=== PATIENT | female | born 1935 | race Two or more races ===

== ENCOUNTER → 2022-06-20 | Outpatient (CLI) | payer MEDICARE ==
[~2022-06-20] MED LIST: **SFHN** SODIUM BICARBONATE 8.4% 10MEQ 10ML VIAL ONE; AMLO25TA PO; CALC-190 PO; CYMB60CA4 PO; ECOT81TA5 PO; KP V1TAB2 PO; LIDOCAINE 1% MDV 20ML VIAL ONE; LISI40TA4 PO; OMEP40CA4 PO; RA G1TAB11 PO; VITA100065 PO; VITMTA PO; ZINC50TA4 PO
[2022-06-20 12:27] VITALS: BP 132/64
== END ==
LOC: M WHCPRO 11:20
PROVIDERS: ATTEND Surgery
DX: C50.411 Malignant neoplasm of upper-outer quadrant of right female breast (principal); R92.8 Other abnormal and inconclusive findings on diagnostic imaging of breast

== ENCOUNTER → 2022-06-28 | Outpatient (CLI) | payer MEDICARE ==
[~2022-06-28] MED LIST changes: -**SFHN** SODIUM BICARBONATE 8.4% 10MEQ 10ML VIAL ONE; -LIDOCAINE 1% MDV 20ML VIAL ONE
[2022-06-28 16:03] VITALS: BP 126/80
== END ==
LOC: M WHCPRO 14:38
PROVIDERS: ATTEND Surgery
DX: C50.411 Malignant neoplasm of upper-outer quadrant of right female breast (principal)
CPT/HCPCS: 19083; 77065; 88305; G0279

== ENCOUNTER → 2022-07-03 | Outpatient (CLI) | payer MEDICARE | LOC: M PLALAB 11:59 | PROVIDERS: ATTEND Surgery | DX: C50.911 Malignant neoplasm of unspecified site of right female breast (principal); Z80.1 Family history of malignant neoplasm of trachea, bronchus and lung; Z80.42 Family history of malignant neoplasm of prostate ==

== ENCOUNTER 2022-07-11 06:11 | Observation (INO) | payer MEDICARE ==
[~2022-07-11] VITALS: Ht 149.9 cm; Wt 63.5 kg
[2022-07-11] VITALS (7 sets, daily range): BP systolic 97–139; BP diastolic 49–71
[~2022-07-11 06:11] MED LIST changes: +ceFAZolin SOD 2 GM in IV 1 EA IV ONE
[2022-07-11] MEDS ORDERED: LR 1,000 ML IV SCH ×2 (06:35→13:00)
[2022-07-11] MEDS ORDERED: fentaNYL 100 MCG/2 ML INJECTION As Ordered ONE (07:17)
[2022-07-11] MEDS ORDERED: ROCURONIUM BROMIDE 50MG/5ML VIAL As Ordered ONE (07:17)
[2022-07-11] MEDS ORDERED: propofoL 200 MG/20 ML VIAL As Ordered ONE (07:17)
[2022-07-11] MEDS ORDERED: LIDOCAINE 2% 100MG/5ML SDV (FOR ANES.) As Ordered ONE (07:17)
[2022-07-11] MEDS ORDERED: ONDANSETRON 4MG 2ML VIAL As Ordered ONE (07:18)
[2022-07-11] MEDS ORDERED: SCOPOLAMINE 1MG TRANSDERMAL PATCH TOP ONE (07:30)
[2022-07-11] MEDS ORDERED: ASCO500T PO (07:36)
[2022-07-11] MEDS ORDERED: CALC500T25 PO (07:36)
[2022-07-11] MEDS ORDERED: GLUCTAB7 PO (07:36)
[2022-07-11] MEDS ORDERED: AMLO1TAB24 PO (07:36)
[2022-07-11] MEDS ORDERED: DULO30CA47 PO (07:36)
[2022-07-11] MEDS ORDERED: BUPIVACAINE LIPOSOME/PF 1.3% 20ML VIAL (13.3MG/ML)(EXPAREL) As Ordered ONE (07:37)
[2022-07-11] MEDS ORDERED: BUPIVACAINE HCL 0.25% 30ML VIAL As Ordered ONE (07:37)
[2022-07-11] MEDS ORDERED: HOME MED LIST COMPLETE! XX SCH (07:40)
[2022-07-11] MEDS ORDERED: HEPARIN SOD (PORCINE) 5000UNITS/ML 1ML VIAL/SYRINGE SQ ONE (09:30)
[2022-07-11] MEDS ORDERED: VASOPRESSIN INJ 20UNITS/ML 1ML VIAL As Ordered ONE (10:25)
[2022-07-11] MEDS ORDERED: ePHEDrine SULFATE 25 MG/5 ML(5MG/ML) SYRINGE As Ordered ONE ×2 (10:27→12:32)
[2022-07-11] MEDS ORDERED: PHENYLephrine 500MCG 5ML (100MCG/ML) SYRINGE As Ordered ONE ×2 (10:27→12:36)
[2022-07-11] MEDS ORDERED: ACETAMINOPHEN 1000MG 100ML IV BAG As Ordered ONE (10:29)
[2022-07-11] MEDS ORDERED: METOCLOPRAMIDE INJ 10MG/2ML VIAL As Ordered ONE (10:29)
[2022-07-11] MEDS ORDERED: SUGAMMADEX SODIUM 500 MG/5 ML VIAL (BRIDION) As Ordered ONE (10:32)
[2022-07-11] MEDS ORDERED: GLYCOPYRROLATE INJ 0.2 MG/ML 2 ML VIAL As Ordered ONE (11:45)
[2022-07-11] MEDS ORDERED: MEPERIDINE 25 MG/ML 1ML VIAL IV PRN (13:00)
[2022-07-11] MEDS ORDERED: ONDANSETRON 4MG 2ML VIAL IV PRN ×2 (13:00→13:20)
[2022-07-11] MEDS ORDERED: fentaNYL 100 MCG/2 ML INJECTION IV PRN (13:00)
[2022-07-11] MEDS ORDERED: MORPHINE 2 MG/ML 1ML VIAL IV PRN (13:20)
[2022-07-11] MEDS: LR 1,000 ML IV SCH (13:20)
[2022-07-11] MEDS ORDERED: oxyCODONE 5MG TAB PO PRN (13:20)
[2022-07-11] MEDS ORDERED: ACETAMINOPHEN TAB 650MG DOSE (2X325MG) PO PRN (13:20)
[2022-07-11 14:18] LABS: HEMATOCRIT 27.3 % (36.0-47.0); HEMOGLOBIN 8.9 g/dl (12.0-15.5); MEAN CORPUSCULAR HEMOGLOBIN 31.2 pg (27.0-33.0); MEAN CORPUSCULAR HGB CONC 32.6 g/dl (32.0-36.5); MEAN CORPUSCULAR VOLUME 95.8 fl (80.0-96.0); PLATELET COUNT, AUTOMATED 159 10^3/uL (150-450); RED BLOOD COUNT 2.85 10^6/uL (4.00-5.40); WHITE BLOOD COUNT 8.2 10^3/uL (4.0-10.0)
[2022-07-11 14:48] LABS: BLOOD UREA NITROGEN 18 MG/DL (9-23); CALCIUM LEVEL 8.1 MG/DL (8.3-10.6); CARBON DIOXIDE LEVEL 27 MMOL/L (20-31); CHLORIDE LEVEL 107 MMOL/L (98-107); CREATININE FOR GFR 0.89 MG/DL (0.55-1.30); GLOMERULAR FILTRATION RATE > 60.0 (>32); GLUCOSE, FASTING 167 MG/DL (74-106); POTASSIUM SERUM 4.1 MMOL/L (3.5-5.1); SODIUM LEVEL 138 MMOL/L (136-145)
[2022-07-11 14:50] LABS: THYROID STIMULATING HORMONE 9.788 uIU/ML (0.55-4.78)
[2022-07-11] MEDS: ceFAZolin SOD 2 GM in IV 1 EA IV SCH (18:33)
[2022-07-11] MEDS: amLODIPine 5 MG TAB PO SCH (20:57)
[2022-07-11] MEDS: lisinopriL 40MG TAB PO SCH (20:57)
[2022-07-11] MEDS: DULoxetine 30MG CAPSULE (CYMBALTA) PO SCH (21:02)
[2022-07-11] MEDS: HEPARIN SOD (PORCINE) 5000UNITS/ML 1ML VIAL/SYRINGE SQ SCH (21:02)
[2022-07-12] VITALS (13 sets, daily range): BP systolic 99–141; BP diastolic 38–86
[2022-07-12] MEDS: LR 1,000 ML IV SCH (02:11)
[2022-07-12 02:16] LABS: BASO % 0.1 % (0.0-1.0); HEMATOCRIT 23.1 % (36.0-47.0); HEMOGLOBIN 7.6 g/dl (12.0-15.5); LYMPH # 0.8 10^3/uL (1.5-5.0); LYMPH % 7.2 % (24.0-44.0); MEAN CORPUSCULAR HEMOGLOBIN 31.8 pg (27.0-33.0); MEAN CORPUSCULAR HGB CONC 32.9 g/dl (32.0-36.5); MEAN CORPUSCULAR VOLUME 96.7 fl (80.0-96.0); MONO # 0.6 10^3/uL (0.0-0.8); MONO % 5.3 % (2.0-8.0); NEUTROPHILS # 9.4 10^3/uL (1.5-8.5); NEUTROPHILS % 86.9 % (36.0-66.0); PLATELET COUNT, AUTOMATED 207 10^3/uL (150-450); RED BLOOD COUNT 2.39 10^6/uL (4.00-5.40); WHITE BLOOD COUNT 10.8 10^3/uL (4.0-10.0)
[2022-07-12 02:39] LABS: CALCIUM LEVEL 8.5 MG/DL (8.3-10.6); CREATININE FOR GFR 0.96 MG/DL (0.55-1.30); GLOMERULAR FILTRATION RATE 58.8 (>32); MAGNESIUM LEVEL 1.6 MG/DL (1.8-2.4); POTASSIUM SERUM 4.6 MMOL/L (3.5-5.1)
[2022-07-12] MEDS ORDERED: MAG SULF 1GM/100ML (MAG RUN) 1 GM in IV 1 EA IV ONE ×2 (02:45→07:40)
[2022-07-12] MEDS: ceFAZolin SOD 2 GM in IV 1 EA IV SCH ×2 (02:58→13:46)
[2022-07-12 03:06] LABS: IRON (FE) 60 UG/DL (50-170); TOTAL IRON BINDING CAPACITY 231 UG/DL (250-425)
[2022-07-12 03:08] LABS: FERRITIN 38.2 NG/ML (7.3-270.7); FOLATE > 24.00 NG/ML (>5.4)
[2022-07-12 03:09] LABS: VITAMIN B12 LEVEL 291 PG/ML (211-911)
[2022-07-12] MEDS: HEPARIN SOD (PORCINE) 5000UNITS/ML 1ML VIAL/SYRINGE SQ SCH (05:20)
[2022-07-12] MEDS ORDERED: NS 1,000 ML IV SCH (08:20)
[2022-07-12] MEDS: ASCORBIC ACID 500 MG TAB PO SCH (08:49)
[2022-07-12] MEDS: MULTIVITAMINS/MINERALS THERAP 1 TAB PO SCH (08:49)
[2022-07-12] MEDS: amLODIPine 5 MG TAB PO SCH ×3 (08:52→19:49)
[2022-07-12] MEDS: DULoxetine 30MG CAPSULE (CYMBALTA) PO SCH ×2 (08:52→20:16)
[2022-07-12] MEDS: OMEPRAZOLE 20MG CAP PO SCH (08:52)
[2022-07-12 08:53] LABS: HEMATOCRIT 22.4 % (36.0-47.0); HEMOGLOBIN 7.3 g/dl (12.0-15.5)
[2022-07-12 09:07] LABS: ERYTHROCYTE SEDIMENTATION RATE 7 mm/hr (0-30)
[2022-07-12 09:25] LABS: C REACTIVE PROTEIN QUANTITATIV 2.3 MG/DL (<1.0); PERCENT SATURATION 33.6 % (13.2-45.0)
[2022-07-12 09:28] LABS: FERRITIN 49.4 NG/ML (7.3-270.7)
[2022-07-12] MEDS ORDERED: ePHEDrine SULFATE 25 MG/5 ML(5MG/ML) SYRINGE As Ordered ONE (10:56)
[2022-07-12] MEDS ORDERED: fentaNYL 100 MCG/2 ML INJECTION As Ordered ONE (10:57)
[2022-07-12] MEDS ORDERED: propofoL 200 MG/20 ML VIAL As Ordered ONE (10:59)
[2022-07-12] MEDS ORDERED: LIDOCAINE 2% 100MG/5ML SDV (FOR ANES.) As Ordered ONE (10:59)
[2022-07-12] MEDS ORDERED: ONDANSETRON 4MG 2ML VIAL As Ordered ONE (10:59)
[2022-07-12] MEDS ORDERED: ROCURONIUM BROMIDE 50MG/5ML VIAL As Ordered ONE (11:01)
[2022-07-12] MEDS ORDERED: LIDOCAINE 1% SDV 30ML VIAL As Ordered ONE (13:18)
[2022-07-12] MEDS ORDERED: BUPIVACAINE HCL 0.5% 30ML VIAL As Ordered ONE (13:18)
[2022-07-12] MEDS ORDERED: ceFAZolin 2 GM/D5W 50 ML IV BAG As Ordered ONE (13:44)
[2022-07-12] MEDS ORDERED: GLYCOPYRROLATE INJ 0.2 MG/ML 2 ML VIAL As Ordered ONE (14:13)
[2022-07-12] MEDS ORDERED: BUPIVACAINE HCL 0.25% 30ML VIAL As Ordered ONE (14:28)
[2022-07-12] MEDS ORDERED: HYDROMORPHONE HCL 0.5 MG/ 0.5 ML SYRINGE IV PRN (14:30)
[2022-07-12] MEDS ORDERED: oxyCODONE 5MG TAB PO PRN (14:30)
[2022-07-12] MEDS ORDERED: LR 1,000 ML IV SCH (14:30)
[2022-07-12] MEDS ORDERED: ONDANSETRON 4MG 2ML VIAL IV PRN (14:30)
[2022-07-12] MEDS ORDERED: fentaNYL 100 MCG/2 ML INJECTION IV PRN (14:30)
[2022-07-12] MEDS ORDERED: LABETALOL 100MG/20ML VIAL As Ordered ONE (14:46)
[2022-07-12 18:04] LABS: HEMATOCRIT 27.1 % (36.0-47.0); HEMOGLOBIN 8.7 g/dl (12.0-15.5); MEAN CORPUSCULAR HGB CONC 32.1 g/dl (32.0-36.5); MEAN CORPUSCULAR VOLUME 93.4 fl (80.0-96.0); PLATELET COUNT, AUTOMATED 174 10^3/uL (150-450); WHITE BLOOD COUNT 11.3 10^3/uL (4.0-10.0)
[2022-07-12] MEDS: lisinopriL 40MG TAB PO SCH (19:50)
[2022-07-13] VITALS (9 sets, daily range): BP systolic 145–163; BP diastolic 54–72
[2022-07-13 07:18] LABS: HEMATOCRIT 24.9 % (36.0-47.0); MEAN CORPUSCULAR HEMOGLOBIN 29.7 pg (27.0-33.0); MEAN CORPUSCULAR HGB CONC 32.1 g/dl (32.0-36.5); MEAN CORPUSCULAR VOLUME 92.6 fl (80.0-96.0); PLATELET COUNT, AUTOMATED 166 10^3/uL (150-450); RED BLOOD COUNT 2.69 10^6/uL (4.00-5.40); WHITE BLOOD COUNT 9.8 10^3/uL (4.0-10.0)
[2022-07-13] MEDS ORDERED: LEVOTHYROXINE 12.5MCG PER 1/2 TAB (0.0125MG) PO SCH (10:00)
[2022-07-13] MEDS: MULTIVITAMINS/MINERALS THERAP 1 TAB PO SCH (10:08)
[2022-07-13] MEDS: OMEPRAZOLE 20MG CAP PO SCH (10:09)
[2022-07-13] MEDS: DULoxetine 30MG CAPSULE (CYMBALTA) PO SCH (10:12)
[2022-07-13] MEDS: ASCORBIC ACID 500 MG TAB PO SCH (10:12)
[2022-07-13] MEDS: amLODIPine 5 MG TAB PO SCH (10:13)
[2022-07-13] MEDS ORDERED: OXYC-517 PO (15:03)
[2022-07-13 16:48] LABS: HEMATOCRIT 27.7 % (36.0-47.0); HEMOGLOBIN 9.3 g/dl (12.0-15.5)
== END 2022-07-13 18:50 | disposition home health service (06) ==
LOC: M SDC 06:11 → M MS5PR 06:12
PROVIDERS: ADMIT Surgery; ATTEND Surgery
DX: C50.911 Malignant neoplasm of unspecified site of right female breast (principal); L76.34 Postprocedural seroma of skin and subcutaneous tissue following other procedure; Z88.2 Allergy status to sulfonamides; Z88.0 Allergy status to penicillin; Z88.8 Allergy status to other drugs, medicaments and biological substances
CPT/HCPCS: 10140; 19303; 36415; 36430; 38525; 70450; 78195; 80048; 82140; 82607; 82728; 82746; 83550; 83735; 84145; 84443; 85014; 85018; 85025; 85027; 85652; 86140; 86850; 86900; 86901; 86920; 87635; 88307; 93005; 96361; 96365; 96366; 96372; A9520; C9290; G0378; J0131; J0690; J1100; J2370; J2405; J2765; J3010; J3475; P9016

== ENCOUNTER → 2022-08-01 | Outpatient (CLI) | payer MEDICARE ==
[~2022-08-01] MED LIST changes: +AMLO1TAB24 PO; +ASCO500T PO; +CALC500T25 PO; +DULO30CA47 PO; +GLUCTAB7 PO; +LETR2.5T2 PO; +OXYC-517 PO; -ceFAZolin SOD 2 GM in IV 1 EA IV ONE
== END ==
LOC: M ONCR 15:10
PROVIDERS: ATTEND Specialist
DX: C50.911 Malignant neoplasm of unspecified site of right female breast (principal); Z90.11 Acquired absence of right breast and nipple; I10 Essential (primary) hypertension; D64.9 Anemia, unspecified; K21.9 Gastro-esophageal reflux disease without esophagitis; N39.3 Stress incontinence (female) (male); M19.90 Unspecified osteoarthritis, unspecified site; Z80.1 Family history of malignant neoplasm of trachea, bronchus and lung; Z80.42 Family history of malignant neoplasm of prostate; Z88.0 Allergy status to penicillin; Z88.1 Allergy status to other antibiotic agents; Z88.5 Allergy status to narcotic agent; Z79.899 Other long term (current) drug therapy; R29.898 Other symptoms and signs involving the musculoskeletal system

== ENCOUNTER → 2022-09-15 | Outpatient (RCR) | payer MEDICARE | LOC: M ONCR 08-30 10:21 | PROVIDERS: ATTEND General Practice | DX: Z51.0 Encounter for antineoplastic radiation therapy (principal); C50.911 Malignant neoplasm of unspecified site of right female breast ==

== ENCOUNTER → 2022-10-16 | Outpatient (RCR) | payer MEDICARE | LOC: M ONCR 09-20 10:01 | PROVIDERS: ATTEND General Practice | DX: C50.911 Malignant neoplasm of unspecified site of right female breast (principal) ==

== ENCOUNTER → 2023-04-18 | Outpatient (CLI) | payer MEDICARE ==
[~2023-04-18] MED LIST changes: +FAMO40TA3 PO; +OXYB-54 PO
== END ==
LOC: M ONCR 09:52
PROVIDERS: ATTEND General Practice
DX: Z08 Encounter for follow-up examination after completed treatment for malignant neoplasm (principal); Z85.3 Personal history of malignant neoplasm of breast; Z71.2 Person consulting for explanation of examination or test findings; Z90.11 Acquired absence of right breast and nipple; Z92.3 Personal history of irradiation; Z79.811 Long term (current) use of aromatase inhibitors; Z88.5 Allergy status to narcotic agent; Z88.1 Allergy status to other antibiotic agents; Z88.2 Allergy status to sulfonamides; Z79.82 Long term (current) use of aspirin; Z79.899 Other long term (current) drug therapy

== ENCOUNTER → 2023-05-28 | Outpatient (CLI) | payer MEDICARE | LOC: M WHC 12:26 | PROVIDERS: ATTEND Nurse Practitioner Women's Health | DX: Z12.31 Encounter for screening mammogram for malignant neoplasm of breast (principal); Z85.3 Personal history of malignant neoplasm of breast | CPT/HCPCS: 77065; G0279 ==

== ENCOUNTER → 2023-10-19 | Outpatient (CLI) | payer MEDICARE ==
[~2023-10-19] MED LIST changes: +FERR325T3 PO
== END ==
LOC: M ONCR 10:06
PROVIDERS: ATTEND General Practice
DX: Z08 Encounter for follow-up examination after completed treatment for malignant neoplasm (principal); Z85.3 Personal history of malignant neoplasm of breast; Z79.811 Long term (current) use of aromatase inhibitors; Z79.82 Long term (current) use of aspirin; Z79.899 Other long term (current) drug therapy; Z88.1 Allergy status to other antibiotic agents; Z88.2 Allergy status to sulfonamides; Z88.5 Allergy status to narcotic agent; Z90.11 Acquired absence of right breast and nipple; Z92.3 Personal history of irradiation

== ENCOUNTER → 2024-06-18 | Outpatient (CLI) | payer MEDICARE | LOC: M WHC 09:46 | PROVIDERS: ATTEND Internal Medicine Medical Oncology | DX: C50.411 Malignant neoplasm of upper-outer quadrant of right female breast (principal); Z90.12 Acquired absence of left breast and nipple | CPT/HCPCS: 77065; G0279 ==

== ENCOUNTER → 2024-10-17 | Outpatient (CLI) | payer MEDICARE ==
[~2024-10-17] MED LIST changes: +LISI40TA10 PO; -LISI40TA4 PO
== END ==
LOC: M ONCR 10:43
PROVIDERS: ATTEND General Practice
DX: Z08 Encounter for follow-up examination after completed treatment for malignant neoplasm (principal); Z85.3 Personal history of malignant neoplasm of breast; Z90.11 Acquired absence of right breast and nipple; Z92.3 Personal history of irradiation; Z79.811 Long term (current) use of aromatase inhibitors; Z88.1 Allergy status to other antibiotic agents; Z88.2 Allergy status to sulfonamides; Z88.5 Allergy status to narcotic agent; Z79.82 Long term (current) use of aspirin; Z79.899 Other long term (current) drug therapy

== ENCOUNTER → 2025-03-05 | Outpatient (REF) | payer MEDICARE ==
[~2025-03-05] MED LIST changes: +ZINC50TA37 PO; -ZINC50TA4 PO
[2025-03-05 12:52] LABS: APPEARANCE, URINE CLEAR (CLEAR); BACTERIA, URINE AUTO NEGATIVE (NEGATIVE); BILIRUBIN, URINE AUTO NEGATIVE (NEGATIVE); BLOOD, URINE BLOOD NEGATIVE (NEGATIVE); GLUCOSE, URINE (UA) AUTO NEGATIVE (NEGATIVE); KETONE, URINE AUTO NEGATIVE (NEGATIVE); LEUKOCYTE ESTERASE, URINE AUTO NEGATIVE (NEGATIVE); NITRITE, URINE AUTO NEGATIVE (NEGATIVE); PROTEIN, URINE AUTO NEGATIVE (NEGATIVE); RBC, URINE AUTO 0 /HPF (0-3); SPECIFIC GRAVITY URINE AUTO 1.012 (1.002-1.035); SQUAMOUS EPITHELIAL CELL UR AU 0 /HPF (0-6); UROBILINOGEN, URINE AUTO 0.2 mg/dL (0.0-2.0); WBC, URINE AUTO 0 /HPF (0-3)
== END ==
LOC: M SMT 12:35
PROVIDERS: ATTEND Nurse Practitioner Family
DX: N81.11 Cystocele, midline (principal)